=== PATIENT | male | born 1975 | race Hispanic/Latino ===

== ENCOUNTER 2021-01-30 08:27 | Emergency (ER) | payer SELFPAY ==
--- NOTE | 2021-01-30 08:49 | Emergency Department Report ---
HPI - General Chief Complaint: Extremity Problem,Nontraumatic Time Seen by Provider: 01/30/21 08:35 - HPI HPI: MSE 1 The patient is a 45-year-old male present with a chief complaint of left hand swelling. Patient states for the past 2 days he has had pain and swelling of his left hand. Patient denies recalling any specific injuries or lacerations. 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 Patient denies history of fever. Patient currently gives his pain a score of 7/10 ED Past Medical Hx - Past Medical History Previous Medical History?: No - Surgical History Additional Surgical History: "Cranial scraping" secondary to infection - Family History Family history: no significant - Social History Smoking Status: Former Smoker (None x5 years) Substance Use Type: None - Medications Home Medications: Home Medications Medication Instructions Recorded Confirmed Last Taken Type HYDROcodone/APAP 5-325 [Nazareth 1 - 2 each PO Q6HR PRN #14 tablet 01/30/21 Unknown Rx 5/325] Ibuprofen [Motrin 800 MG tab] 800 mg PO Q8HR PRN #20 tablet 01/30/21 Unknown Rx ED Review of Systems ROS: Stated complaint: lt hand pain swollen Other details as noted in HPI Constitutional: denies: fever Eyes: denies: eye pain ENT: denies: throat pain Respiratory: no symptoms reported Cardiovascular: denies: chest pain Endocrine: no symptoms reported Musculoskeletal: myalgia Physical Exam - Physical Exam Vital Signs: Vital Signs 01/30/21 08:35 Temperature 97.6 F Pulse Rate 88 Respiratory 18 Rate Blood Pressure 162/110 O2 Sat by Pulse 98 Oximetry Physical Exam: GENERAL: The patient is well-developed well-nourished male standing in room not appearing to be in acute distress. [] HEENT: Normocephalic. Atraumatic. Extraocular motions are intact. Patient has moist mucous membranes. NECK: Supple. Trachea midline CHEST/LUNGS: There is no respiratory distress noted. HEART/CARDIOVASCULAR: Regular. There is no tachycardia. 2+ left radial pulse SKIN: There is swelling to the dorsum of the left hand greatest just proximal to the MCP of the index finger when compared to the left. Patient's hands are very dirty as he works as a atm mechanic. Comparison with the unaffected hand the skin appears the same. NEURO: The patient is awake, alert, and oriented. The patient is cooperative. The patient has no focal neurologic deficits. The patient has normal speech. G CS 15 MUSCULOSKELETAL: There is no evidence of acute injury. ED Course Vital Signs 01/30/21 08:35 Temperature 97.6 F Pulse Rate 88 Respiratory 18 Rate Blood Pressure 162/110 O2 Sat by Pulse 98 Oximetry ED Medical Decision Making - Lab Data Result diagrams: 01/30/21 08:45 01/30/21 08:45 Laboratory Tests 01/30/21 01/30/21 01/30/21 08:45 08:45 08:45 WBC 11.7 H RBC 5.13 H Hgb 15.4 H Hct 44.8 MCV 87 MCH 30 MCHC 34 RDW 12.7 L Plt Count 249 Lymph % (Auto) 15.3 [place] % (Auto) 5.7 Eos % (Auto) 5.1 H Baso % (Auto) 0.4 Lymph # (Auto) 1.8 [place] # (Auto) 0.7 Eos # (Auto) 0.6 H Baso # (Auto) 0.1 Seg Neutrophils % 73.5 H Seg Neutrophils # 8.6 H ESR 1 Sodium 139 Potassium 3.8 Chloride 101.6 Carbon Dioxide 26 Anion Gap 15 BUN 12 Creatinine 1.0 Estimated GFR > 60 BUN/Creatinine Ratio 12 Glucose 119 H Calcium 9.4 C-Reactive Protein 01/30/21 08:45 WBC RBC Hgb Hct MCV MCH MCHC RDW Plt Count Lymph % (Auto) [place] % (Auto) Eos % (Auto) Baso % (Auto) Lymph # (Auto) [place] # (Auto) Eos # (Auto) Baso # (Auto) Seg Neutrophils % Seg Neutrophils # ESR Sodium Potassium Chloride Carbon Dioxide Anion Gap BUN Creatinine Estimated GFR BUN/Creatinine Ratio Glucose Calcium C-Reactive Protein 1.60 H - Radiology Data Radiology results: report reviewed (Left hand x-ray, left upper extremity Doppler), image reviewed (Left hand x-ray, left upper extremity Doppler) interpreted by me: Left hand x-ray-no acute fracture, no foreign body seen [facility] [address] [place] [address] XRay Report Signed Patient: VIKI BECKER MR#: [id number] : 1975 Acct:[id number] Age/Sex: 45 / M ADM Date: 01/30/21 Loc: ED Attending Dr: Ordering Physician: MARÍA ELENA HODGE MD Date of Service: 01/30/21 Procedure(s): XR hand 2V LT Accession Number(s): [id number] cc: MARÍA ELENA HODGE MD Fluoro Time In Minutes: XR hand 2V LT INDICATION / CLINICAL INFORMATION: Pain and swelling. CO MPARISON: None available. FINDINGS: BONES/JOINT(S): No acute fracture or subluxation. No significant degenerative changes. SOFT TISSUES: Generalized soft tissue swelling. No radiopaque foreign bodies. ADDITIONAL FINDINGS: None. Signer Name: Javan Thomas MD Signed: 01/30/2021 9:16 AM Workstation Name: [id number] Transcribed By: MIO Dictated By: Javan Thomas MD Electronically Authenticated By: Javan Thomas MD Signed Date/Time: 01/30/21915 DD/ 4 TD/TT: Print Cancel - Differential Diagnosis Gout, DVT, hand infection, occult fracture Critical care attestation.: If time is entered above; I have spent that time in minutes in the direct care of this critically ill patient, excluding procedure time. ED Disposition Clinical Impression: Swelling of left hand Disposition: 01 HOME / SELF CARE / HOMELESS Is pt being admited?: No Does the pt Need Aspirin: No Condition: Stable Additional Instructions: Return to the emergency department should you develop worsening symptoms, inability to tolerate food or liquids, high fever or any other concerns Prescriptions: Ibuprofen [Motrin 800 MG tab] 800 mg PO Q8HR PRN #20 tablet PRN Reason: Pain, Moderate (4-6) HYDROcodone/APAP 5-325 [Naz[place] 5/325] 1 - 2 each PO Q6HR PRN #14 tablet PRN Reason: Pain [facility]Other[facility] - 2-3 Days Time of Disposition: 11:15
[2021-01-30 08:56] LABS: Basophils # (Auto) 0.1 K/mm3 (0.0-0.1); Basophils % (Auto) 0.4 % (0.0-1.8); Eosinophils # (Auto) 0.6 K/mm3 (0.0-0.4); Eosinophils % (Auto) 5.1 % (0.0-4.3); Hematocrit 44.8 % (35.5-45.6); Hemoglobin 15.4 gm/dl (11.8-15.2); Lymphocytes # (Auto) 1.8 K/mm3 (1.2-5.4); Lymphocytes % (Auto) 15.3 % (13.4-35.0); Mean Corpuscular HGB Conc 34 % (32-34); Mean Corpuscular Volume 87 fl (84-94); Monocytes # (Auto) 0.7 K/mm3 (0.0-0.8); Monocytes % (Auto) 5.7 % (0.0-7.3); Platelet Count 249 K/mm3 (140-440); Red Blood Count 5.13 M/mm3 (3.65-5.03); Red Cell Distribution Width 12.7 % (13.2-15.2)
[2021-01-30 09:16] LABS: BUN/Creatinine Ratio 12; Blood Urea Nitrogen 12 mg/dL (9-20); Calcium 9.4 mg/dL (8.4-10.2); Hemolysis Index 6
--- NOTE | 2021-01-30 09:20 | XRay Report ---
XR hand 2V LT INDICATION / CLINICAL INFORMATION: Pain and swelling. COMPARISON: None available. FINDINGS: BONES/JOINT(S): No acute fracture or subluxation. No significant degenerative changes. SOFT TISSUES: Generalized soft tissue swelling. No radiopaque foreign bodies. ADDITIONAL FINDINGS: None. Signer Name: Javan Thomas MD Signed: 01/30/2021 9:16 AM Workstation Name: [id number]
--- NOTE | 2021-01-30 10:47 | Vascular Lab Report ---
DUPLEX DOPPLER UPPER EXTREMITY VENOUS, LEFT INDICATION / CLINICAL INFORMATION: Left hand pain and swelling. TECHNIQUE: Duplex doppler imaging was performed through the veins of the left upper extremity using venous compr ession and other maneuvers. COMPARISON: None available. FINDINGS: LEFT INTERNAL JUGULAR VEIN: Negative. LEFT SUBCLAVIAN VEIN: Negative. LEFT AXILLARY VEIN: Negative. LEFT BRACHIAL VEIN: Negative. LEFT FOREARM VEINS: Negative. LEFT BASILIC VEIN (SUPERFICIAL): Negative. ADDITIONAL FINDINGS: None. IMPRESSION: 1. No sonographic evidence for DVT. Signer Name: Jaylon March MD Signed: 01/30/2021 10:38 AM Workstation Name: [id number]
[2021-01-30 11:37] VITALS: BP 154/94
== END 2021-01-30 11:35 | disposition home or self-care (01) ==
LOC: ED 08:27
DX: M79.89 Other specified soft tissue disorders (principal); Z98.890 Other specified postprocedural states; Z87.891 Personal history of nicotine dependence
CPT/HCPCS: 36415; 80048; 85025; 85652; 86140; 99284